=== PATIENT | male | born 1995 | race Two or more races ===

== ENCOUNTER 2022-08-11 23:07 | Emergency (ER) | payer BC ==
[~2022-08-11] VITALS: Ht 177.8 cm; Wt 77.1 kg
[2022-08-12] MEDS ORDERED: KETO10TA2 PO (04:11)
== END 2022-08-12 04:18 ==
LOC: ER 23:07
DX: S39.848A Other specified injuries of external genitals, initial encounter (principal); X58.XXXA Exposure to other specified factors, initial encounter; Y93.89 Activity, other specified; Y92.89 Other specified places as the place of occurrence of the external cause